=== PATIENT | male | born 1955 | race Caucasian/White ===

== ENCOUNTER → 2023-09-04 | Outpatient (CLI) | payer BC, MEDICARE | LOC: M CARPUL 11:27 | PROVIDERS: ATTEND Internal Medicine Pulmonary Disease | DX: R06.02 Shortness of breath (principal); R91.8 Other nonspecific abnormal finding of lung field ==

== ENCOUNTER → 2023-10-23 | Outpatient (REF) | LOC: M RAD 12:56 | PROVIDERS: ATTEND Internal Medicine | DX: R06.02 Shortness of breath (principal) ==

== ENCOUNTER → 2024-03-19 | Outpatient (CLI) | payer OTHER, MEDICARE | LOC: M RADPRO 10:28 | PROVIDERS: ATTEND Internal Medicine Pulmonary Disease | DX: R91.8 Other nonspecific abnormal finding of lung field (principal); J98.6 Disorders of diaphragm; J98.11 Atelectasis ==

== ENCOUNTER 2024-08-07 12:23 | Emergency (ER) | payer OTHER, MEDICARE ==
[~2024-08-07] VITALS: Ht 167.6 cm; Wt 82.4 kg
[2024-08-07 12:34] VITALS: BP 159/92; TEMP 97; O2SAT 96
[2024-08-07] MEDS ORDERED: GUAI1SOL7 PO (14:55)
== END 2024-08-07 15:04 | disposition home or self-care (01) ==
LOC: M ED 12:23
DX: J06.9 Acute upper respiratory infection, unspecified (principal); R05.9 Cough, unspecified; Z88.2 Allergy status to sulfonamides; Z79.899 Other long term (current) drug therapy

== ENCOUNTER → 2024-09-16 | Outpatient (CLI) | payer MEDICARE, OTHER ==
[~2024-09-16] MED LIST: GUAI1SOL7 PO
== END ==
LOC: M PLAIMG 11:10
PROVIDERS: ATTEND Internal Medicine Pulmonary Disease
DX: R91.8 Other nonspecific abnormal finding of lung field (principal)